=== PATIENT | female | born 2000 | race Caucasian/White ===

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

== ENCOUNTER 2021-08-22 18:42 | Emergency (ER) | payer OTHER ==
[2021-08-22] MEDS ORDERED: IPRATROPIUM-ALBUTEROL 3 ML NEB INHALATION STA (20:07)
--- NOTE | 2021-08-22 20:11 | ED ---
General Adult HPI - General Chief complaint: Upper Respiratory Infection Stated complaint: Coughing, sore throat Time Seen by Provider: 08/22/21 19:54 Source: patient, family Mode of arrival: ambulatory Limitations: no limitations - History of Present Illness Initial comments: This is a well-appearing 21-year-old female that presents to the emergency room with complaints of sore throat, hoarse voice, runny nose and cough since Tuesday. Patient states the sore throat started first after being outside in the cold Air. 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 She denies any fevers. She denies any nausea or vomiting but has stated she has had a couple episodes of diarrhea. She does have a history of as thma and did an albuterol treatment at 1600 today. She also uses Symbicort. Mom states that they had medication left over from a Medrol Dosepak that she took yesterday. -: days(s) (6) Location: mouth (Sore throat) Severity scale (1-10): 8 Consistency: constant Improves with: none Worsens with: other (cough) Associated Symptoms: cough (Congestion runny nose), other (Diarrhea) Treatments Prior to Arrival: other (Steroids left over from a Medrol Dosepak; albuterol at 4pm) - Related Data Home Medications Medication Instructions Recorded Confirmed Montelukast [Singulair] 10 mg PO DAILY 12/16/16 12/07/18 Albuterol Inhaler (Mhu) [Ventolin 2 puff INHALATION RT-Q4H PRN 02/26/18 12/07/18 Hfa Inhaler] Albuterol Nebulized [Ventolin 2.5 mg INHALATION RT-QID PRN 02/26/18 12/07/18 Nebulized] Budesonide/Formoterol Fumarate 2 puff INHALATION RT-BID 12/07/18 12/07/18 [Symbicort 160-4.5 Mcg Inhaler] Levothyroxine Sodium [Synthroid] 125 mcg PO DAILY 12/07/18 12/07/18 calcitrioL [Rocaltrol] 0.25 mcg PO DAILY 12/07/18 12/07/18 medroxyPROGESTERone [Provera] 10 mg PO DIRECTED 12/07/18 12/07/18 Previous Rx's Medication Instructions Recorded predniSONE [Deltasone] 20 mg PO BID 4 Days #8 tab 10/27/19 predniSONE 50 mg PO DAILY #4 tab 08/22/21 Allergies Allergy/AdvReac Type Severity Reaction Status Date / Time No Known Allergies Allergy Verified 08/22/21 19:46 Review of Systems ROS Statement: Those systems with pertinent positive or pertinent negative responses have been documented in the HPI. ROS Other: All systems not noted in ROS Statement are negative. Past Medical History Past Medical History: Asthma, GERD/Reflux, Thyroid Disorder Additional Past Medical History / Comment(s): hypothyroid History of Any Multi-Drug Resistant Organisms: None Reported Past Surgical History: Adenoidectomy Additional Past Surgical History / Comment(s): ear tubes Past Anesthesia/Blood Transfusion Reactions: No Reported Reaction Past Psychological History: ADD/ADHD Smoking Status: Never smoker Past Alcohol Use History: None Reported Past Drug Use History: None Reported - Past Family History Mother Family Medical History: Thyroid Disorder General Exam Limitations: no limitations General appearance: alert, in no apparent distress Head exam: Present: atraumatic, normocephalic, normal inspection Eye exam: Present: normal appearance, EOMI ENT exam: Present: normal exam, mucous membranes moist Expanded Mouth exam: Present: tongue normal, tongue elevation. Absent: drooling, trismus, muffled voice, laceration Throat exam: tonsillar erythema, tonsillar exudate (Left white exudate). negative: R peritonsillar mass, L peritonsillar mass Neck exam: Present: normal inspection, full ROM. Absent: tenderness, meningismus, thyromegaly Respiratory exam: Present: wheezes. Absent: respiratory distress, rales, rhonchi, stridor Cardiovascular Exam: Present: regular rate, normal rhythm, normal heart sounds. Absent: systolic murmur, diastolic murmur, rubs, gallop, clicks GI/Abdominal exam: Present: soft, normal bowel sounds. Absent: distended, tenderness, guarding, rebound, rigid Neurological exam: Present: alert. Absent: oriented X3 Psychiatric exam: Present: normal affect, normal mood Skin exam: Present: warm, dry, intact, normal color. Absent: rash Course Vital Signs 08/22/21 08/22/21 08/22/21 19:48 20:20 20:25 Temperature 97.5 F L Pulse Rate 77 74 Respiratory 20 18 16 Rate Blood Pressure 141/94 O2 Sat by Pulse 96 Oximetry 08/22/21 08/22/21 08/22/21 20:35 21:26 21:36 Temperature Pulse Rate 75 72 74 Respiratory 18 18 18 Rate Blood Pressure O2 Sat by Pulse Oximetry 08/22/21 22:11 Temperature 97.6 F Pulse Rate 74 Respiratory 18 Rate Blood Pressure 138/97 O2 Sat by Pulse 100 Oximetry - Reevaluation(s) Reevaluation #1: 08/22/21 20:56 Patient continues to have inspiratory and expiratory wheezes bilaterally after the first treatment. Additional albuterol will be given. Time: 20:56 Medical Decision Making - Medical Decision Making This is a well-appearing female with stable vital signs. Rapid strep is negative. covid negative. Lung sounds are improved and clear after the second albuterol treatment. She denies any fevers, nausea or vomiting. She was given 1 dose of prednisone will be prescribed prednisone for the next 4 days. This is likely an exacerbation of asthma in conjunction with a viral illness. Patient was directed to follow up with her primary care doctor and return to the emergency room with any new or worsening symptoms. I did discuss the possibility of mono with patient and her mother and directed patient to not participate in any physical activity until re-evaluated by her primary care doctor. Return to emergency room with any new or worsening symptoms. - Lab Data Lab Results 08/22/21 08/22/21 Range/Units 20:55 20:58 Coronavirus (PCR) Not Detected (Not Detectd) Group A Strep Rapid Negative (Negative) Disposition Clinical Impression: Pharyngitis, Asthma Disposition: HOME SELF-CARE Condition: Good Instructions (If sedation given, give patient instructions): Asthma (ED), Pharyngitis (ED) Additional Instructions: Tylenol and/or Motrin as needed for pain. Continue albuterol every 4 hours as needed. Continue Symbicort as previously prescribed. Take prednisone as prescribed once a day for the next 4 days. Return to the emergency room with any new or worsening symptoms. Prescriptions: predniSONE 50 mg PO DAILY #4 tab Is patient prescribed a controlled substance at d/c from ED?: No Referrals: Jacquelin Manrique DO [Primary Care Provider] - 1-2 days Time of Disposition: 21:52
[2021-08-22 20:36] VITALS: RESP 18
[2021-08-22] MEDS ORDERED: ALBUTEROL NEBULIZED 2.5 MG/3 ML INHALATION STA (20:55)
[2021-08-22] MEDS ORDERED: predniSONE 50 MG TAB PO STA (21:49)
[2021-08-22 22:01] VITALS: PULSE 74
[2021-08-22 22:12] VITALS: BP 138/97; TEMP 97.6
== END 2021-08-22 22:12 | disposition home or self-care (01) ==
LOC: EC 18:42
DX: J02.9 Acute pharyngitis, unspecified (principal); J45.909 Unspecified asthma, uncomplicated; K21.9 Gastro-esophageal reflux disease without esophagitis; E07.9 Disorder of thyroid, unspecified; F90.9 Attention-deficit hyperactivity disorder, unspecified type; Z90.89 Acquired absence of other organs; Z20.822 Contact with and (suspected) exposure to COVID-19
CPT/HCPCS: 99283 ×2; 94640 ×2; 87081; 87430; 87635; J7512

== ENCOUNTER 2021-11-08 14:57 | Emergency (ER) | payer OTHER ==
[2021-11-08 15:48] LABS: Appearance,Urine Cloudy (Clear); Bacteria,Urine Many /hpf; Bilirubin,Urine Negative (Negative); Blood,Urine Moderate (Negative); Color,Urine Dark Yellow; Glucose,Urine (UA) Negative (Negative); Ketones,Urine Negative (Negative); Leukocyte Esterase,Urine Large (Negative); Mucus,Urine Few /hpf; Nitrite,Urine Positive (Negative); PH, Urine 5.5 (5.0-8.0); Protein,Urine 1+ (Negative); RBC,Urine 54 /hpf (0-5); Specific Gravity,Urine 1.017 (1.001-1.035); Squamous Epithelial Cell,Urine 5 /hpf (0-4); Urobilinogen,Urine <2.0 mg/dL (<2.0); WBC,Urine >182 /hpf (0-5)
[2021-11-08] MEDS ORDERED: SODIUM CHLORIDE 0.9% 1,000 ML IV ONE (16:39)
[2021-11-08] MEDS ORDERED: cefTRIAXone IN SWFI 1,000 MG/10 ML SYRINGE IVP STA (16:39)
[2021-11-08] MEDS ORDERED: BAMLANIVIMAB (EUA) 700 MG, ETESEVIMAB (EUA) 1,400 MG in SODIUM CHLORIDE 0.9% 100 ML IVPB ONE (17:00)
--- NOTE | 2021-11-08 17:00 | ED ---
URI HPI - General Chief Complaint: Upper Respiratory Infection Stated Complaint: Covid+,TEJINDER Time Seen by Provider: 11/08/21 16:09 Source: patient, RN notes reviewed Mode of arrival: ambulatory Limitations: no limitations - History of Present Illness Initial Comments: This is a pleasant 21-year-old female with a history of asthma who presents to emergency room today complaining of runny nose, body aches, headache, and dry cough. Patient states she had the COVID-19 booster and Tuesday and developed symptoms yesterday. She also believes she has urinary tract infection. Patient is prone to UTIs and is getting some burning dysuria. Has subjective fever, no changes in vision or hearing, no sore throat or difficulty with speech, no neck pain, no chest pain or shortness of breath, no abdominal pain, no nausea or vomiting, no changes bowel movements, no numbness or tingling, no extremity pain, no skin rashes or lesions. - Related Data Home Medications Medication Instructions Recorded Confirmed Montelukast [Singulair] 10 mg PO DAILY 12/16/16 12/07/18 Albuterol Inhaler (Mhu) [Ventolin 2 puff INHALATION RT-Q4H PRN 02/26/18 12/07/18 Hfa Inhaler] Albuterol Nebulized [Ventolin 2.5 mg INHALATION RT-QID PRN 02/26/18 12/07/18 Nebulized] Budesonide/Formoterol Fumarate 2 puff INHALATION RT-BID 12/07/18 12/07/18 [Symbicort 160-4.5 Mcg Inhaler] Levothyroxine Sodium [Synthroid] 125 mcg PO DAILY 12/07/18 12/07/18 calcitrioL [Rocaltrol] 0.25 mcg PO DAILY 12/07/18 12/07/18 medroxyPROGESTERone [Provera] 10 mg PO DIRECTED 12/07/18 12/07/18 Previous Rx's Medication Instructions Recorded predniSONE [Deltasone] 20 mg PO BID 4 Days #8 tab 10/27/19 predniSONE 50 mg PO DAILY #4 tab 08/22/21 Acetaminophen Tab [Tylenol Tab] 500 mg PO Q6H PRN #24 tablet 11/08/21 Cefdinir 300 mg PO Q12HR #14 cap 11/08/21 Allergies Allergy/AdvReac Type Severity Reaction Status Date / Time No Known Allergies Allergy Verified 11/08/21 15:15 Review of Systems ROS Statement: Those systems with pertinent positive or pertinent negative responses have been documented in the HPI. ROS Other: All systems not noted in ROS Statement are negative. Past Medical History Past Medical History: Asthma, GERD/Reflux, Thyroid Disorder Additional Past Medical History / Comment(s): hypothyroid History of Any Multi-Drug Resistant Organisms: None Reported Past Surgical History: Adenoidectomy Additional Past Surgical History / Comment(s): ear tubes Past Anesthesia/Blood Transfusion Reactions: No Reported Reaction Past Psychological History: ADD/ADHD Smoking Status: Never smoker Past Alcohol Use History: None Reported Past Drug Use History: None Reported - Past Family History Mother Family Medical History: Thyroid Disorder General Exam - General Exam Comments Initial Comments: Patient in no significant distress. Does not appear to be ill or toxic. Dry cough noted throughout the course of exam. Limitations: no limitations General appearance: alert, in no apparent distress Head exam: Present: atraumatic, normocephalic, normal inspection Eye exam: Present: normal appearance, PERRL, EOMI. Absent: scleral icterus, conjunctival injection, periorbital swelling ENT exam: Present: normal exam, mucous membranes moist Neck exam: Present: normal inspection. Absent: tenderness, meningismus, lymphadenopathy Respiratory exam: Present: normal lung sounds bilaterally. Absent: respiratory distress, wheezes, rales, rhonchi, stridor Cardiovascular Exam: Present: regular rate, normal rhythm, normal heart sounds. Absent: systolic murmur, diastolic murmur, rubs, gallop, clicks GI/Abdominal exam: Present: soft, normal bowel sounds. Absent: distended, tenderness, guarding, rebound, rigid Extremities exam: Present: normal inspection, full ROM, normal capillary refill. Absent: tenderness, pedal edema, joint swelling, calf tenderness Back exam: Present: normal inspection. Absent: CVA tenderness (R), CVA tenderness (L) (SpO2 is 98% on room air. No tachypnea. No adventitious lung sounds.) Neurological exam: Present: alert, oriented X3, CN II-XII intact Psychiatric exam: Present: normal affect, normal mood Skin exam: Present: warm, dry, intact, normal color. Absent: rash Course Vital Signs 11/08/21 15:11 Temperature 98.4 F Pulse Rate 84 Respiratory 18 Rate Blood Pressure 137/93 O2 Sat by Pulse 98 Oximetry Medical Decision Making - Medical Decision Making Patient presents with symptoms consistent with COVID-19 infection. Patient being seen during the COVID-19 pandemic. Patient has symptoms of upper respiratory/viral syndrome. Patient also has some dysuria as prone to UTIs. Urinary tract infection likely after review of the urinalysis. Patient meets criteria for the monoclonal antibody infusion given her BMI. This will be ordered. Will give the patient 1 g of ceftriaxone here and prescribed cefdinir as an outpatient. Patient will be instructed to call her regular doctor for recheck within the next few days. Of course she'll need to quarantine as directed for COVID-19. Patient was told to return to the ER for any signs or symptoms worsen. Told to return immediately if any other problems arise. All questions answered. Treatment plan discussed. Patient in agreement Findings discussed, treatment plan discussed, questions answered - Lab Data Lab Results 11/08/21 11/08/21 11/08/21 Range/Units 15:24 15:24 15:24 Urine Color Dark Yellow Urine Appearance Cloudy H (Clear) Urine pH 5.5 (5.0-8.0) Ur Specific [place] 1.017 (1.001-1.035) Urine Protein 1+ H (Negative) Urine Glucose (UA) Negative (Negative) Urine Ketones Negative (Negative) Urine Blood Moderate H (Negative) Urine Nitrite Positive H (Negative) Urine Bilirubin Negative (Negative) Urine Urobilinogen <2.0 (<2.0) mg/dL Ur Leukocyte Esterase Large H (Negative) Urine RBC 54 H (0-5) /hpf Urine WBC >182 H (0-5) /hpf Urine WBC Clumps Moderate H (None) /hpf Ur Squamous Epith Cells 5 H (0-4) /hpf Urine Bacteria Many H (None) /hpf Urine Mucus Few H (None) /hpf Urine HCG, Qual Not Detected (Not Detectd) Coronavirus (PCR) Detected A (Not Detectd) Disposition Clinical Impression: COVID-19, Acute UTI Disposition: HOME SELF-CARE Condition: Good Instructions (If sedation given, give patient instructions): Coronavirus Disease 2019 (COVID-19), Urinary Tract Infection in Women (ED) Additional Instructions: SELF QUARANTINE DISCHARGE: As you are at risk for symptoms due to coronavirus, please stay home and stay away from others as much as possible. Please maintain social distance of 6 feet if possible. You should not return to work until at least 3 days (72 hours) have passed since recovery of symptoms. This defined as resolution of fever without the use of fever reducing medicines and improvement in respiratory symptoms (e.g,, cough, shortness of breath) Isolation can end at least 5 days after symptom onset and after fever ends for 24 hours (without the use of fever-reducing medication) and symptoms are improving, if these people can continue to properly wear a well-fitted mask around others for 5 more days after the 5-day isolation period. If you're still having symptoms at the end of 5 day period, isolate for an additional 5 days. More information about what to do if you are sick can be found on the CDC website at https://www.cdc.gov/roberto virus/2019-ncov/ju-vlu-mjt-sick/utofc-kncz-lbxd.html Expect the symptoms to last for 7-14 days from onset. Use acetaminophen (Tylenol) as needed for discomfort. You can take a maximum of 1 gram every 6 hours for discomfort, with your total dose in 24 hours not exceeding 4 grams. Be sure to maintain hydration. Drink continuous water and/or items high in vitamin C, such as orange juice and/or lemonade. Unless you have high blood pressure, you may consider Sudafed (which is [id number]) for nasal congestion. I would suggest that a short acting Sudafed rather than the 24 hour Sudafed. For a cough you may take Mucinex or Robitussin. Also consider the use of Vicks Vapor Rub or your chest when you sleep. Use a humidifier that is cleaned frequently, in the bedroom at night. For Nausea /Vomiting/Diarrhea associated with your Illness: o Small frequent sips of room temperature liquids. o Diet: [place] Foods - If you are still experiencing discomfort and/or nausea please slowly advancing your diet using the BRAT Diet = bananas, rice, apples/apple sauce, toast. o With diarrhea avoid any dairy for 48 hours after symptoms resolved. o Continue with activity as tolerated. If your symptoms do get worse and you believe that the upper respiratory infection has developed into something else, such as pneumonia or severe dehydration, please return to the emergency department or follow-up with your primary care. But expect to be symptomatic for the days as indicated above Follow-up with your regular physician as directed. Return to the ER immediately if any symptoms worsen, new symptoms arise, or any other problems develop. Is patient prescribed a controlled substance at d/c from ED?: No Referrals: Jacquelin Manrique DO [Primary Care Provider] - 1-2 days Time of Disposition: 17:00
[2021-11-08] MEDS ORDERED: KETOROLAC 15 MG/ML 1 ML VIAL IVP STA (17:25)
[2021-11-08] MEDS ORDERED: SODIUM CHLORIDE 0.9% 50 ML IVPB ONE (17:30)
[2021-11-08 18:54] VITALS: BP 134/88; PULSE 81; RESP 16; TEMP 98.2
== END 2021-11-08 18:52 | disposition home or self-care (01) ==
LOC: EC 14:57
DX: U07.1 COVID-19 (principal); N39.0 Urinary tract infection, site not specified; J45.909 Unspecified asthma, uncomplicated; K21.9 Gastro-esophageal reflux disease without esophagitis; E07.9 Disorder of thyroid, unspecified; F90.9 Attention-deficit hyperactivity disorder, unspecified type
CPT/HCPCS: 96361; 96374; 96375; 99284; M0245; 81001; 81025; 87077; 87086; 87186; 87635

== ENCOUNTER → 2024-01-20 | Outpatient (CLI) | payer BC | END | disposition home or self-care (01) | LOC: LABWHC1 11:02 | PROVIDERS: ATTEND Internal Medicine Critical Care Medicine | DX: J45.40 Moderate persistent asthma, uncomplicated (principal) | CPT/HCPCS: 36415; 82785; 85008 ==

== ENCOUNTER → 2024-10-01 | Outpatient (CLI) | payer BC ==
[2024-10-02 03:11] LABS: T4, Free (Free Thyroxine) 1.36 ng/dL (0.80-1.80)
[2024-10-02 03:14] LABS: Prolactin 3.1 ng/mL (2.800-29.200)
[2024-10-02 03:50] LABS: HCT 42.7 % (37.2-46.3); HGB 13.8 g/dL (12.0-15.0); MCH 31.4 pg (27.0-32.0); MCHC 32.3 g/dL (32.0-37.0); MCV 97.3 FL (80.0-97.0); Mean Platelet Volume 12.1 FL (9.5-12.2); NRBC Per 100 WBC 0 X 10*3/uL (0.00-0.01); Platelet Count 308 X 10*3/uL (140-440); RBC 4.39 X 10*6/uL (4.10-5.20); RDW 12.5 % (11.5-14.5); WBC 9.23 X 10*3/uL (4.50-10.00)
== END | disposition home or self-care (01) ==
LOC: LABWHC1 16:13
PROVIDERS: ATTEND Internal Medicine Endocrinology, Diabetes & Metabolism
DX: E03.8 Other specified hypothyroidism (principal); R53.83 Other fatigue; Z83.3 Family history of diabetes mellitus
CPT/HCPCS: 36415; 82533; 82607; 83036; 84146; 84305; 84439; 84443; 85027